=== PATIENT | male | born 1975 | race Caucasian/White ===

== ENCOUNTER 2016-12-26 08:33 | Day surgery (SDC) | payer BC ==
--- NOTE | 2016-12-24 20:32 | HP ---
ADMITTING HISTORY AND PHYSICAL: DATE OF ADMISSION: 12/26/16 AGE: 41 years, male. ADMITTING DIAGNOSIS: Left varicocele. PLANNED PROCEDURE: Left varicocelectomy. SURGEON: Dr. Marquez. ADMITTING HISTORY AND PHYSICAL: Shoaib Peters is a 41-year-old gentleman who had originally been diagnosed with a left varicocele and had seen an urologist in [place]. He was actually scheduled for left varicocelectomy in [place], but this was never carried out and he subsequently came to [place] for a second opinion. He also has a history of infertility and severe oligospermia. He had been tried on Clomid with significant improvement in testosterone level which increased from 110 to 1029, but no improvement in semen parameters. He is now being brought in for left varicocelectomy. After a thorough discussion of the procedure and possible risks including bleeding, infection, possible injury to the testicle or the blood supply of the testicle, development of hydrocele, and recurrent varicocele. PAST MEDICAL HISTORY: Unremarkable. Specifically, there is no history of diabetes mellitus or any other major systemic illness. MEDICATIONS: On admission, none. ALLERGIES: No known drug allergies. SOCIAL HISTORY: Smoking history, he is a nonsmoker. PHYSICAL EXAMINATION GENERAL: Reveals a pleasant gentleman who appears reasonably healthy, and alert and oriented. VITAL SIGNS: Blood pressure is 130/80, pulse 78 per minute, oxygen saturation 98%. LUNGS: Clear bilaterally. CARDIOVASCULAR: Regular rate and rhythm. S1, S2. ABDOMEN: Soft without masses. Testicles are distended bilaterally. Grade 2 left varicocele is noted. IMPRESSION: A 41-year-old gentleman with a left varicocele who desires treatment of the same and who also has severe oligospermia. Discussed the procedure in detail including the risks as outlined above. PLAN: Left varicocelectomy. CC: Dr. Miller* [id number]/[facility] #: [id number] MTDGila
[~2016-12-26 08:33] MED LIST: Buffered Lidocaine 1% SYR 3ML* 3 ML/SYR SYRINGE INTRADERM ONE; Famotidine IV* 10 MG/ML 2 ML (20 mg) IV ONE; Morphine INJ* 2 MG/ML 1 ML CARPUJECT IV PRN; PROCHLORPERAZINE INJ 5 MG/ML 2 ML VIAL IV PRN; fentaNYL* 50 MCG/ML 2 ML VIAL (100 MCG VIAL) IV PRN; oxyCODONE/Acetamin 5/325 MG* TAB PO PRN
[2016-12-26] MEDS ORDERED: cefTRIAXone(*) 2 GM ADDV.VIAL IVPB ONE (08:52)
[2016-12-26] MEDS ORDERED: Famotidine IV* 10 MG/ML 2 ML (20 mg) ONE (08:52)
[2016-12-26] MEDS ORDERED: fentaNYL* 50 MCG/ML 2 ML VIAL (100 MCG VIAL) ONE (09:55)
[2016-12-26] MEDS ORDERED: Midazolam* 1 MG/ML 5 ML VIAL (5 MG) ONE (09:55)
[2016-12-26] MEDS ORDERED: KETAMINE HCL* 50 MG/ML 10 ML VIAL ONE (09:55)
[2016-12-26] MEDS ORDERED: Propofol* 10 MG/ML 20 ML BTL IV PUSH ONE (11:29)
[2016-12-26] MEDS ORDERED: PROCHLORPERAZINE INJ 5 MG/ML 2 ML VIAL ONE (11:29)
[2016-12-26] MEDS ORDERED: Dexamethasone IV* 4 MG/ML 1 ML (4 MG) ONE (11:29)
[2016-12-26] MEDS ORDERED: Ondansetron INJ* 2 MG/ML VIAL ONE (11:29)
[2016-12-26] MEDS ORDERED: Lidocaine 2% PF * 5 ML VIAL ONE (11:29)
[2016-12-26] MEDS ORDERED: Morphine INJ* 10 MG/ML 1 ML CARPUJECT ONE (11:39)
[2016-12-26] MEDS ORDERED: oxyCODONE/Acetamin 5/325 MG* TAB ONE (13:51)
[2016-12-26 14:07] VITALS: BP 137/86
--- NOTE | 2016-12-27 09:49 | OP ---
DATE OF OPERATION: 12/26/16 [facility] DATE OF : 75 SURGEON: Diaz Marquez MD. FARMWORKERS: Dr. Hrerera. ANESTHESIOLOGIST: Dr. Swain ANESTHESIA: General. PRE-OP DIAGNOSIS: Left varicocele. POST-OP DIAGNOSIS: Left varicocele. OPERATIVE PROCEDURE: Left varicocelectomy. COMPLICATIONS: None. POSTOPERATIVE CONDITION: Stable. ESTIMATED BLOOD LOSS: Less than 25 cc. DRAINS: None. INDICATIONS: Shoaib Peters is a 41-year-old gentleman who has had a history of left varicocele. He also has had severe oligospermia and now desires treatment of the left varicocele. I have discussed the procedure in detail including possible risk of bleeding, infection, injury to the testicle, and recurrence of the varicocele, and he understands and wishes to proceed as planned. DESCRIPTION OF PROCEDURE: After induction of general anesthesia, the patient was placed on the operating table in the supine position. The lower abdomen and genitalia were prepped and draped in the usual sterile fashion. A small incision was made in the sub-inguinal area on the left side and the subcutaneous tissue was divided. The cord structures were identified and were encircled using a Dank drain. The cremasteric fascia was divided and the cord structures were carefully identified and the vas deferens with the deferential vessels were carefully identified and preserved throughout the procedure. Using the Doppler, the spermatic artery was identified and this was also preserved throughout the procedure, and periodic Doppler interrogation was carried out during and at the end of the procedure confirming patency of the artery. There were two large veins comprising the bulk of the varicocele and these were identified and dissected. The veins were then tied off using 4-0 Vicryl ties. Once this was accomplished, the remaining part of the cord structures consisted of the vas deferens with the deferential vessels, several lymphatics, and the spermatic artery. The cord was allowed to drop back into its normal anatomic position. The wound was irrigated. The subcutaneous tissue was approximated using 3-0 Vicryl interrupted sutures and the skin was approximated using 4-0 Vicryl running subcuticular sutures. All sponge and needle counts were correct. Dry sterile dressings were applied. The patient tolerated the procedure satisfactorily and was transferred back to recovery area in stable condition. [id number]/[facility] #: [id number] [facility]
== END 2016-12-26 14:21 | disposition home or self-care (01) ==
LOC: OR 08:33
PROVIDERS: ATTEND Urology
DX: I86.1 Scrotal varices (principal)
CPT/HCPCS: A9270-GY; J0696; J0780; J1100; J2250; J2270; J2405; J2704; J3010